=== PATIENT | female | born 1960 | race Caucasian/White ===

== ENCOUNTER → 2023-10-02 11:21 | Outpatient (REF) | payer OTHER, SELFPAY | LOC: RAD 11:21 | PROVIDERS: ATTENDING PHYSICIAN Internal Medicine Hematology & Oncology; FAMILY PHYSICIAN Internal Medicine | DX: E83.110 Hereditary hemochromatosis (principal); N28.89 Other specified disorders of kidney and ureter | CPT/HCPCS: 76700; 77080 ==

== ENCOUNTER → 2023-11-20 10:41 | Outpatient (REF) | payer OTHER, SELFPAY | LOC: RCS 10:41 | PROVIDERS: ATTENDING PHYSICIAN Internal Medicine Cardiovascular Disease; FAMILY PHYSICIAN Internal Medicine | DX: E83.110 Hereditary hemochromatosis (principal); I10 Essential (primary) hypertension; R01.1 Cardiac murmur, unspecified; R07.89 Other chest pain | CPT/HCPCS: 93017 ==

== ENCOUNTER → 2023-11-24 07:05 | Outpatient (REF) | payer OTHER, SELFPAY | LOC: HWRCS 07:05 | PROVIDERS: ATTENDING PHYSICIAN Internal Medicine Cardiovascular Disease; FAMILY PHYSICIAN Internal Medicine | DX: I10 Essential (primary) hypertension (principal); E83.110 Hereditary hemochromatosis; R01.1 Cardiac murmur, unspecified; R07.89 Other chest pain | CPT/HCPCS: 93306 ==

== ENCOUNTER 2023-12-18 12:54 | Outpatient (RCR) | payer OTHER, SELFPAY ==
[2023-12-18 13:20] VITALS: BP 122/55
[2023-12-18 14:45] VITALS: BP 130/65
[2023-12-18 14:48] VITALS: BP 122/62
[2023-12-18 14:53] VITALS: BP 125/74
== END 2023-12-27 23:59 | disposition home or self-care (01) ==
LOC: OID 12:54
PROVIDERS: ATTENDING PHYSICIAN Internal Medicine Hematology & Oncology
DX: E83.110 Hereditary hemochromatosis (principal); N28.89 Other specified disorders of kidney and ureter
CPT/HCPCS: 99195

== ENCOUNTER → 2024-02-01 07:22 | Outpatient (REF) | payer OTHER, SELFPAY | LOC: RAD 07:22 | PROVIDERS: ATTENDING PHYSICIAN Obstetrics & Gynecology; FAMILY PHYSICIAN Internal Medicine | DX: Z12.31 Encounter for screening mammogram for malignant neoplasm of breast (principal) | CPT/HCPCS: 77063; 77067 ==

== ENCOUNTER 2024-05-13 13:18 | Outpatient (RCR) | payer OTHER, SELFPAY ==
[2024-05-13 14:23] VITALS: BP 144/70
[2024-05-13 15:28] VITALS: BP 128/60
[2024-05-13 15:35] VITALS: BP 131/71
== END 2024-05-16 08:54 | disposition home or self-care (01) ==
LOC: OID 13:18
PROVIDERS: ATTENDING PHYSICIAN Internal Medicine Hematology & Oncology; PRIMARYCARE PHYSICIAN Internal Medicine
DX: E83.110 Hereditary hemochromatosis (principal); N28.89 Other specified disorders of kidney and ureter
CPT/HCPCS: 99195

== ENCOUNTER 2024-09-16 12:56 | Outpatient (RCR) | payer OTHER, SELFPAY ==
[2024-09-16 13:15] VITALS: BP 131/67
[2024-09-16 14:07] VITALS: BP 122/67
[2024-09-16 14:12] VITALS: BP 124/69
[2024-09-16 14:18] VITALS: BP 123/69
== END 2024-09-26 23:59 | disposition home or self-care (01) ==
LOC: OID 12:56
PROVIDERS: ATTENDING PHYSICIAN Internal Medicine Hematology & Oncology; FAMILY PHYSICIAN Internal Medicine
DX: E83.110 Hereditary hemochromatosis (principal); N28.89 Other specified disorders of kidney and ureter
CPT/HCPCS: 99195

== ENCOUNTER → 2024-12-21 11:13 | Outpatient (REF) | payer OTHER, SELFPAY | LOC: PAVMRI 11:13 | PROVIDERS: ATTENDING PHYSICIAN Otolaryngology Facial Plastic Surgery; FAMILY PHYSICIAN Internal Medicine | DX: J30.1 Allergic rhinitis due to pollen (principal); J32.0 Chronic maxillary sinusitis; H93.A1 Pulsatile tinnitus, right ear | CPT/HCPCS: 70546; A9585 ==

== ENCOUNTER → 2025-01-31 15:47 | Outpatient (REF) | payer OTHER, SELFPAY | LOC: WDC 15:47 | PROVIDERS: ATTENDING PHYSICIAN Obstetrics & Gynecology; FAMILY PHYSICIAN Internal Medicine | DX: Z12.31 Encounter for screening mammogram for malignant neoplasm of breast (principal) | CPT/HCPCS: 77063; 77067 ==

== ENCOUNTER → 2025-02-09 07:54 | Outpatient (REF) | payer OTHER, SELFPAY | LOC: RAD 07:54 | PROVIDERS: ATTENDING PHYSICIAN Internal Medicine; OTHER PHYSICIAN Internal Medicine Endocrinology, Diabetes & Metabolism; OTHER PHYSICIAN Internal Medicine Hematology & Oncology | DX: R10.12 Left upper quadrant pain (principal) | CPT/HCPCS: 76700 ==

== ENCOUNTER → 2025-03-07 07:18 | Outpatient (REF) | payer OTHER, SELFPAY | LOC: RAD 07:18 | PROVIDERS: ATTENDING PHYSICIAN Internal Medicine; OTHER PHYSICIAN Specialist | DX: R10.12 Left upper quadrant pain (principal) | CPT/HCPCS: 74150 ==

== ENCOUNTER 2025-04-03 13:02 | Outpatient (RCR) | payer OTHER, SELFPAY ==
[2025-04-03 13:49] VITALS: BP 126/59
[2025-04-03 14:55] VITALS: BP 122/65
[2025-04-03 15:00] VITALS: BP 129/77
== END 2025-04-28 23:59 | disposition home or self-care (01) ==
LOC: OID 13:02
PROVIDERS: ATTENDING PHYSICIAN Internal Medicine Hematology & Oncology; FAMILY PHYSICIAN Internal Medicine
DX: E83.110 Hereditary hemochromatosis (principal); N28.89 Other specified disorders of kidney and ureter
CPT/HCPCS: 99195

== ENCOUNTER → 2025-05-04 07:59 | Outpatient (REF) | payer OTHER, SELFPAY | LOC: RCS 07:59 | PROVIDERS: ATTENDING PHYSICIAN Internal Medicine Cardiovascular Disease; FAMILY PHYSICIAN Internal Medicine | DX: I34.0 Nonrheumatic mitral (valve) insufficiency (principal); R01.1 Cardiac murmur, unspecified | CPT/HCPCS: 93306 ==